=== PATIENT | male | born 1975 | race Caucasian/White ===

== ENCOUNTER 2024-01-29 23:23 | Emergency (ER) | payer OTHER ==
[2024-01-29 23:30] VITALS: RESP 18; TEMP 98.3
[2024-01-30] MEDS: HYDROmorphone 0.5 MG/0.5 ML SYRINGE IVP STA (00:38)
--- NOTE | 2024-01-30 00:39 | CT ---
EXAMINATION TYPE: CT orbits wo con DATE OF EXAM: 01/30/2024 COMPARISON: None. HISTORY: R/O FB eye CT DLP: 314.2 mGycm Automated exposure control for dose reduction was used. FINDINGS: There is lens deviation noted. There is focal mild right-sided preseptal soft tissue swelling. Intrac onal fat is preserved bilaterally. Orbital floors and lipscomb are intact. No definitive intraorbital fo reign body or air seen. There is acute comminuted displaced fractures through the nasal bones with associated soft tissue swe lling. Paranasal sinuses are grossly clear. IMPRESSION: 1. ACUTE COMMINUTED DISPLACED FRACTURES OF THE NASAL BONES WITH ASSOCIATED SOFT TISSUE SWELLING. 2. MILD RIGHT-SIDED PRESEPTAL SOFT TISSUE SWELLING. NO DEFINITIVE INTRAORBITAL FOREIGN BODY. NO POSTS EPTAL INFLAMMATORY CHANGE. THERE IS LENS DEVIATION NOTED, CORRELATE FOR STRABISMUS.
[2024-01-30] MEDS: DIPH,PERTUS(ACELL)TETVAC-LF 0.5 ML VIAL IM ONE (00:45)
[2024-01-30] MEDS: ONDANSETRON 4 MG/2 ML VIAL IVP STA (00:48)
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
[2024-01-30 02:06] VITALS: BP 131/84; PULSE 83
== END 2024-01-30 01:59 | disposition other institution (70) ==
LOC: EC 23:23
DX: S02.2XXA Fracture of nasal bones, initial encounter for closed fracture (principal); S05.91XA Unspecified injury of right eye and orbit, initial encounter; Z23 Encounter for immunization; W39.XXXA Discharge of firework, initial encounter
CPT/HCPCS: 99284; 96365; 96375 ×2; 90471; 70480; 90715; J2405; J0690; J1170